=== PATIENT | female | born 1975 | race Caucasian/White ===

== ENCOUNTER 2020-02-24 14:16 | Emergency (ER) | payer OTHER ==
[2020-02-24 14:27] VITALS: BP 131/78; PULSE 66; TEMP 98.1; BMI 33.3
[2020-02-24 15:06] LABS: BASO % 1.1 % (0-2.0); HEMATOCRIT 36.5 % (32.4-45.2); LYMPH % 38.5 % (8-40); MCH 28.8 pg (25.7-33.7); MEAN CELL VOLUME 87.2 fl (80-96); MEAN PLT VOLUME 9.5 fl (7.5-11.1); MONO % 7.5 % (3.8-10.2); NEUT % 50.9 % (42.8-82.8); PLATELET COUNT 302 K/MM3 (134-434); RBC 4.18 M/mm3 (3.60-5.2); RDW 12.8 % (11.6-15.6); WHITE BLOOD COUNT 7.4 K/mm3 (4.0-10.0)
[2020-02-24] MEDS ORDERED: ASPIRIN 325 MG TABLET PO ONE (15:06)
[2020-02-24] MEDS ORDERED: ASPIRIN 325 MG ENTERIC COATED TABLET (FP) ONE (15:08)
[2020-02-24] MEDS ORDERED: MAG HYDROX/AL HYDROX/SIMETH 30 ML UNIT-DOSE CUP PO ONE (15:12)
[2020-02-24] MEDS ORDERED: FAMOTIDINE 20 MG/50 ML IVPB 20 MG/50 ML MG IVPB ONE ×2 (15:12→15:16)
[2020-02-24] MEDS ORDERED: ACETAMINOPHEN 1000 MG/100 ML VIAL (NON FORMULARY) IVPB ONE (15:12)
[2020-02-24] MEDS ORDERED: ACETAMINOPHEN INJECTION 100 ML IVPB ONE (15:16)
[2020-02-24] MEDS ORDERED: MAG HYDROX/AL HYDROX/SIMETH 30 ML UNIT-DOSE CUP ONE (15:16)
[2020-02-24 15:30] LABS: CHLORIDE 107 mmol/L (98-107); POTASSIUM 4.2 mmol/L (3.5-5.1); SODIUM 141 mmol/L (136-145)
[2020-02-24 15:32] LABS: ALBUMIN 3.5 g/dl (3.4-5.0); ANION GAP 7 MMOL/L (8-16); BLOOD UREA NITROGEN 8.2 mg/dL (7-18); CALCIUM 8.9 mg/dL (8.5-10.1); CO2 27 mmol/L (21-32); GLUCOSE,RANDOM 97 mg/dL (74-106); MAGNESIUM 2.3 mg/dL (1.8-2.4)
[2020-02-24 15:35] LABS: CREATININE 0.7 mg/dL (0.55-1.3); SGOT/AST 22 U/L (15-37); SGPT/ALT 32 U/L (13-61)
[2020-02-24 15:37] LABS: BILIRUBIN,TOTAL 0.3 mg/dL (0.2-1)
[2020-02-24 15:38] LABS: ALK PHOS 122 U/L (45-117)
[2020-02-24 15:41] LABS: N-TERMINAL BNP 70.5 pg/ml (5-125)
[2020-02-24 16:03] LABS: ERYTHROCYTE SEDIMENTATION RATE 33 mm/hr (0-20)
== END 2020-02-24 16:19 | disposition home or self-care (01) ==
LOC: JER 14:16
PROC: 3E0333Z Introduction of Anti-inflammatory into Peripheral Vein, Percutaneous Approach (ICD-10-PCS; principal; 2020-02-24)
PROC: 3E033GC Introduction of Other Therapeutic Substance into Peripheral Vein, Percutaneous Approach (ICD-10-PCS; 2020-02-24)
DX: K21.9 Gastro-esophageal reflux disease without esophagitis (principal); R07.9 Chest pain, unspecified
CPT/HCPCS: 36415; 71045-TC-FY; 80053; 83735; 83880; 84443; 84484; 84702; 84703; 85025; 85651; 86140; 93005; 93010; 99285-25; C9803; J0131; U0003

== ENCOUNTER 2020-03-05 03:15 | Emergency (ER) | payer OTHER ==
[2020-03-05 03:31] VITALS: TEMP 99.2; BMI 34.4
[2020-03-05 04:26] LABS: BASO % 0.4 % (0-2.0); EOS % 1.2 % (0-4.5); HEMATOCRIT 31.6 % (32.4-45.2); HEMOGLOBIN 10.6 GM/dL (10.7-15.3); LYMPH % 43.7 % (8-40); MCH 29.6 pg (25.7-33.7); MCHC 33.7 g/dl (32.0-36.0); MEAN CELL VOLUME 87.7 fl (80-96); MEAN PLT VOLUME 9.8 fl (7.5-11.1); MONO % 12.9 % (3.8-10.2); NEUT % 41.8 % (42.8-82.8); PLATELET COUNT 271 K/MM3 (134-434); RDW 12.5 % (11.6-15.6); WHITE BLOOD COUNT 4.4 K/mm3 (4.0-10.0)
[2020-03-05] MEDS ORDERED: ACETAMINOPHEN 1000 MG/100 ML VIAL (NON FORMULARY) IVPB ONE (04:28)
[2020-03-05] MEDS ORDERED: FAMOTIDINE 20 MG/50 ML IVPB 20 MG/50 ML MG IVPB ONE ×2 (04:28→04:32)
[2020-03-05] MEDS ORDERED: MAG HYDROX/AL HYDROX/SIMETH 30 ML UNIT-DOSE CUP PO ONE (04:28)
[2020-03-05] MEDS ORDERED: ACETAMINOPHEN INJECTION 100 ML IVPB ONE (04:31)
[2020-03-05] MEDS ORDERED: MAG HYDROX/AL HYDROX/SIMETH 30 ML UNIT-DOSE CUP ONE (04:32)
[2020-03-05 04:52] LABS: CHLORIDE 107 mmol/L (98-107); POTASSIUM 4.1 mmol/L (3.5-5.1); SODIUM 142 mmol/L (136-145)
[2020-03-05 04:54] LABS: CALCIUM 8.6 mg/dL (8.5-10.1)
[2020-03-05 04:55] LABS: ALBUMIN 3.4 g/dl (3.4-5.0); ANION GAP 8 MMOL/L (8-16); BLOOD UREA NITROGEN 4.9 mg/dL (7-18); CO2 26 mmol/L (21-32); GLUCOSE,RANDOM 114 mg/dL (74-106)
[2020-03-05 04:58] LABS: CREATININE 0.7 mg/dL (0.55-1.3); SGOT/AST 55 U/L (15-37); SGPT/ALT 72 U/L (13-61)
[2020-03-05 04:59] LABS: BILIRUBIN,TOTAL 0.1 mg/dL (0.2-1)
[2020-03-05 05:01] LABS: ALK PHOS 116 U/L (45-117); TOT PROT 6.6 g/dl (6.4-8.2)
[2020-03-05] MEDS ORDERED: IBUPROFEN 400 MG TABLET (FP) PO ONE (05:35)
[2020-03-05] MEDS ORDERED: IBUPROFEN 600 MG TABLET (FP) PO ONE ×2 (05:37)
[2020-03-05 06:20] VITALS: BP 131/73; PULSE 58
[2020-03-05] MEDS ORDERED: DEXAMETHASONE SOD PHOSPHATE 10 MG/1 ML VIAL IVPUSH ONE (06:23)
[2020-03-05] MEDS ORDERED: DEXAMETHASONE LIQUID 0.5 MG/5 ML PO ONE (06:30)
[2020-03-05] MEDS ORDERED: DEXAMETHASONE SOD PHOSPHATE 10 MG/1 ML VIAL ONE (06:30)
== END 2020-03-05 06:41 | disposition home or self-care (01) ==
LOC: JER 03:15
PROC: 3E033NZ Introduction of Analgesics, Hypnotics, Sedatives into Peripheral Vein, Percutaneous Approach (ICD-10-PCS; principal; 2020-03-05)
PROC: 3E033GC Introduction of Other Therapeutic Substance into Peripheral Vein, Percutaneous Approach (ICD-10-PCS; 2020-03-05)
DX: K21.9 Gastro-esophageal reflux disease without esophagitis (principal); R07.89 Other chest pain; Z11.59 Encounter for screening for other viral diseases
CPT/HCPCS: 36415; 71046-TC-FY; 80053; 82550; 83690; 84484; 84703; 85025; 85379; 93005; 93010; 99285-25; C9803; J0131; U0003

== ENCOUNTER 2020-07-27 06:14 | Emergency (ER) | payer OTHER ==
[2020-07-27 06:28] VITALS: BMI 34.3
[2020-07-27] MEDS ORDERED: SODIUM CHLORIDE 1,000 ML IV STA (07:46)
[2020-07-27 09:39] LABS: BASO % 0.8 % (0-2.0); EOS % 3.6 % (0-4.5); HEMOGLOBIN 12.6 GM/dL (10.7-15.3); LYMPH % 45.3 % (8-40); MCH 29.9 pg (25.7-33.7); MCHC 34.1 g/dl (32.0-36.0); MEAN CELL VOLUME 87.8 fl (80-96); MEAN PLT VOLUME 9.9 fl (7.5-11.1); MONO % 6.4 % (3.8-10.2); NEUT % 43.9 % (42.8-82.8); PLATELET COUNT 345 K/MM3 (134-434); RBC 4.22 M/mm3 (3.60-5.2); WHITE BLOOD COUNT 6.1 K/mm3 (4.0-10.0)
[2020-07-27 10:00] LABS: INR 0.98 (0.83-1.09); PROTHROMBIN TIME (PATIENT) 11.9 SEC (9.7-13.0)
[2020-07-27 10:08] LABS: PH,URINE 5.5 (5.0-8.0); URINE APPEARANCE CLEAR; URINE BILIRUBIN NEGATIVE (NEGATIVE); URINE COLOR YELLOW; URINE GLUCOSE (UA) NEGATIVE (NEGATIVE); URINE KETONE NEGATIVE (NEGATIVE); URINE LEUK ESTERASE NEGATIVE (NEGATIVE); URINE NITRITE NEGATIVE (NEGATIVE); URINE PROTEIN NEGATIVE (NEGATIVE); URINE UROBILINOGEN 0.2 mg/dL (0.2-1.0)
[2020-07-27 10:09] LABS: HCG,QUALITATIVE URINE Negative
[2020-07-27 10:38] LABS: CHLORIDE 109 mmol/L (98-107); SODIUM 139 mmol/L (136-145)
[2020-07-27 10:40] LABS: ALBUMIN 3.7 g/dl (3.4-5.0); ANION GAP 4 MMOL/L (8-16); BLOOD UREA NITROGEN 10.2 mg/dL (7-18); CALCIUM 8.8 mg/dL (8.5-10.1); CO2 26 mmol/L (21-32); GLUCOSE,RANDOM 92 mg/dL (74-106)
[2020-07-27 10:43] LABS: CREATININE 0.6 mg/dL (0.55-1.3); SGOT/AST 38 U/L (15-37); SGPT/ALT 50 U/L (13-61)
[2020-07-27 10:45] LABS: BILIRUBIN,TOTAL 0.4 mg/dL (0.2-1); TOT PROT 7.2 g/dl (6.4-8.2)
[2020-07-27 10:46] LABS: ALK PHOS 104 U/L (45-117)
[2020-07-27 11:55] VITALS: BP 118/68; PULSE 55; TEMP 97.3
== END 2020-07-27 11:51 | disposition home or self-care (01) ==
LOC: JER 06:14
PROC: 3E0337Z Introduction of Electrolytic and Water Balance Substance into Peripheral Vein, Percutaneous Approach (ICD-10-PCS; principal; 2020-07-27)
DX: R00.2 Palpitations (principal)
CPT/HCPCS: 36415; 71046-TC-FY; 80053; 81003; 82550; 82553; 82962; 84443; 84484; 84703; 85025; 85610; 87086; 93005; 93010; 99284-25; C9803; U0003; U0005

== ENCOUNTER 2023-06-29 14:05 | Emergency (ER) | payer OTHER ==
[2023-06-29 14:14] VITALS: BP 147/74; PULSE 92; RESP 18; TEMP 97.7; BMI 32.8
[2023-06-29] MEDS ORDERED: ACETAMINOPHEN 500 MG TABLET (FP) ONE (15:17)
[2023-06-29] MEDS ORDERED: IBUPROFEN 600 MG TABLET (FP) PO ONE (15:19)
[2023-06-29] MEDS: ACETAMINOPHEN 500 MG TABLET (FP) PO ONE (15:20)
[2023-06-29] MEDS: IBUPROFEN 600 MG TABLET (FP) PO ONE (15:20)
== END 2023-06-29 15:36 | disposition home or self-care (01) ==
LOC: JERFT 14:05
DX: M77.31 Calcaneal spur, right foot (principal); M25.562 Pain in left knee; M79.671 Pain in right foot
CPT/HCPCS: 73562-TC-LT-FY; 73630-TC-RT-FY; 99284-25